=== PATIENT | female | born 1985 | race Caucasian/White ===

== ENCOUNTER → 2019-10-10 | Outpatient (CLI) | payer MEDICAID | LOC: LL.US 14:56 | PROVIDERS: ATTEND Obstetrics & Gynecology | DX: Z34.91 Encounter for supervision of normal pregnancy, unspecified, first trimester (principal); Z3A.12 12 weeks gestation of pregnancy | CPT/HCPCS: 76801 ==

== ENCOUNTER 2020-12-03 07:01 | Day surgery (SDC) | payer MEDICAID ==
[~2020-12-03 07:01] MED LIST: Lactated Ringers 1,000 ML IV SCH; Sodium Chloride 0.9% 10 ML Syringe FLUSH PRN
[2020-12-03] MEDS ORDERED: Midazolam 1 MG/ML 2 ML SDV ONE (07:29)
[2020-12-03] MEDS ORDERED: Propofol 200 MG/20 ML SDV ONE (07:30)
[2020-12-03] MEDS ORDERED: fentaNYL 250 MCG/5 ML SDV ONE (07:30)
--- NOTE | 2020-12-03 08:23 | PCM.PN ---
- General Info Date of Service: 12/03/20 - Review of Systems Systems Review Comment:: 35-year-old female with multiple previous episodes of upper abdominal pain. She underwent ultrasound evaluation which confirmed cholelithiasis. She comes for cholecystectomy. Recent laboratory studies show normal liver function tests. Patient is medically stable to proceed today. There is no significant change in her health status or symptoms since her recent history and physical. I reviewed the proposed operative procedure with the patient. Risks such as but not limited to bleeding infection organ injury and possible need for laparotomy are reviewed. She agrees to proceed. - Patient Data Vitals - Most Recent: Last Vital Signs Temp 98.0 F 12/03/20 07:40 Pulse 69 12/03/20 07:40 Resp 18 12/03/20 07:40 BP 145/94 H 12/03/20 07:40 Pulse Ox 97 12/03/20 07:40 Weight - Most Recent: 81.647 kg Med Orders - Current: Current Medications Lactated Ringer's (Ringers, Lactated) 1,000 mls @ 125 mls/hr IV ASDIRECTED BRAYAN Last Admin: 12/03/20 07:45 Dose: 125 mls/hr Documented by: Sodium Chloride (Saline Flush) 10 ml FLUSH ASDIRECTED PRN PRN Reason: Keep Vein Open Discontinued Medications Fentanyl (Sublimaze) Confirm Administered Dose 250 mcg .ROUTE .STK-MED ONE Stop: 12/03/20 07:31 Midazolam HCl (Versed 1 Mg/Ml) Confirm Administered Dose 2 mg .ROUTE .STK-MED ONE Stop: 12/03/20 07:30 Propofol (Diprivan 20 Ml) Confirm Administered Dose 200 mg .ROUTE .STK-MED ONE Stop: 12/03/20 07:31 Sepsis Event Note - Focused Exam Vital Signs: Vital Signs Temp Pulse Resp BP Pulse Ox 12/03/20 07:40 98.0 F 69 18 145/94 H 97 - Problem List Review Problem List Initiated/Reviewed/Updated: Yes - Assessment Assessment:: Cholelithiasis with biliary colic - Plan Plan:: Cholecystectomy
[2020-12-03] MEDS ORDERED: Bupivacaine 0.5%/EPINEPHrine 1:200,000 30 ML SDV ONE (08:30)
[2020-12-03] MEDS ORDERED: Neostigmine Methylsulfate 10 MG/10 ML MDV IV ONE (08:30)
[2020-12-03] MEDS ORDERED: Ondansetron 4 MG/2 ML SDV IVPUSH ONE (08:30)
[2020-12-03] MEDS ORDERED: Dexamethasone 10 MG/ML SDV IVPUSH ONE (08:30)
[2020-12-03] MEDS ORDERED: Succinylcholine 200 MG/10 ML MDV IV ONE (08:30)
[2020-12-03] MEDS ORDERED: Rocuronium 100 MG/10 ML MDV IV ONE (08:30)
[2020-12-03] MEDS ORDERED: Bupivacaine 0.25% 10 ML SDV INJECT ONE (08:30)
[2020-12-03] MEDS ORDERED: ceFAZolin 1 GM Vial IV ONE (08:30)
[2020-12-03] MEDS ORDERED: Ketorolac 30 MG/ML SDV IVPUSH ONE (08:30)
[2020-12-03] MEDS ORDERED: Glycopyrrolate 0.2 MG/ML SDV IVPUSH ONE (08:30)
[2020-12-03] MEDS ORDERED: Bacitracin Oint 1 GM U/D Packet TOP ONE (10:00)
--- NOTE | 2020-12-03 10:15 | PCM.OPNOTE ---
- General Post-Op/Procedure Note Date of Surgery/Procedure: 12/03/20 Operative Procedure(s): Cholecystectomy Findings: Chronically inflamed gallbladder with multiple stone Pre Op Diagnosis: Chronci cholecystitis with cholelithiasis Post-Op Diagnosis: Same Anesthesia Technique: General ET Tube Primary Surgeon: Markos Graves Pathology: Gallbladder EBL in mLs: 10 Complications: None Condition: Good
--- NOTE | 2020-12-03 11:19 | OR ---
Date of Procedure: 12/03/2020 PREOPERATIVE DIAGNOSIS: Chronic cholecystitis with cholelithiasis. POSTOPERATIVE DIAGNOSIS: Chronic cholecystitis with cholelithiasis. PROCEDURE PERFORMED: Laparoscopic cholecystectomy. INDICATIONS FOR SURGERY: This 35-year-old female has been having recent episodes of postprandial upper abdominal pain. Workup has identified cholelithiasis and she comes for cholecystectomy. FINDINGS: The patient's gallbladder does not appear acutely inflamed, although there are some adhesions to its undersurface consistent with chronic inflammation. The gallbladder does contain multiple stones of varying size. The adjacent liver and other intraabdominal organs appear unremarkable as viewed laparoscopically. DESCRIPTION OF PROCEDURE: The patient was taken to the operating room. She was given general endotracheal anesthesia. Her abdomen was sterilely prepped and draped. A supraumbilical stab wound incision was made. Through this, a Veress needle was inserted and pneumoperitoneum via this needle to a pressure of 15 mmHg was achieved with carbon dioxide. The Veress needle was then replaced with a 12 mm trocar into which the 10 mm 0- degree laparoscopic camera is inserted. Under direct visualization, 5 mm trocars were placed in the subxiphoid midline and in two areas of the right abdomen. All trocar sites were infiltrated with Marcaine prior to incision. Intraabdominal inspection was carried out and attention was turned to the gallbladder. It was secured with grasping forceps placed through the lateral trocars and retracted superiorly and anteriorly. The fatty tissue adhesions to the undersurface of the gallbladder carefully taken down and additional dissection exposed the cystic duct and then the cystic artery. Once the cystic artery had been clearly identified, it was doubly clipped and divided near the gallbladder. The triangle of Calot was then cleared and the cystic duct clearly identified. It was milked and then doubly clipped and divided near the gallbladder with great care being used to avoid any injury or compromise to the common bile duct. The gallbladder was then dissected free from the undersurface of the liver using the hook cautery device. Once the gallbladder is completely freed, it was extracted through the umbilical trocar site. Because of the large amount of stones, these had to be evacuated extraabdominally before the gallbladder could be removed, and because of the presence of one very large stone, the fascial opening at this level had to be slightly enlarged until the stone could be extracted. There was no sign of any bile or stone spillage intra-abdominally. Reinspection of the gallbladder bed was carried out showing good hemostasis and no sign of complication. The pneumoperitoneum was evacuated and the trocars were removed under direct visualization. The fascia of the largest trocar site was closed with a running 0 Vicryl suture. Wounds were irrigated with Betadine and saline solution, and skin incisions approximated with interrupted 4-0 Vicryl in a subcuticular stitch. Benzoin and Steri-Strips were applied followed by antibiotic ointment and sterile dressings. The patient was awakened, extubated, and taken from the operating room in satisfactory condition. ESTIMATED BLOOD LOSS: 10 mL. COMPLICATIONS: None. PROGNOSIS: Good. RADHA Graves MD /[id number]
== END 2020-12-03 13:04 | disposition home or self-care (01) ==
LOC: LL.SDS 07:01
PROVIDERS: ATTEND Surgery
DX: K80.10 Calculus of gallbladder with chronic cholecystitis without obstruction (principal); I10 Essential (primary) hypertension; Z01.812 Encounter for preprocedural laboratory examination; Z20.822 Contact with and (suspected) exposure to COVID-19; Z79.899 Other long term (current) drug therapy; Z87.891 Personal history of nicotine dependence
CPT/HCPCS: 00790; J0330; J0690; J1100; J1885; J2250; J2405; J2704; J2710; J3010; J3490; J7120; U0002

== ENCOUNTER 2023-06-22 09:24 | Day surgery (SDC) | payer BC, MEDICAID, OTHER ==
[~2023-06-22 09:24] MED LIST changes: +Midazolam 1 MG/ML 2 ML SDV ONE; +Propofol 200 MG/20 ML SDV ONE; +fentaNYL 100 MCG/2 ML SDV ONE
[2023-06-22] MEDS ORDERED: ceFAZolin 1 GM Vial ONE (11:02)
[2023-06-22] MEDS ORDERED: Dexamethasone 10 MG/ML SDV ONE (11:02)
[2023-06-22] MEDS ORDERED: Ondansetron 4 MG/2 ML SDV ONE (11:02)
[2023-06-22] MEDS ORDERED: Lidocaine 1% 5 ML VIAL INFILT ONE (11:18)
[2023-06-22] MEDS ORDERED: Bupivacaine 0.5%/EPINEPHrine 1:200,000 30 ML SDV INFILT ONE (11:18)
[2023-06-22 13:02] VITALS: BP 126/86; PULSE 58
== END 2023-06-22 13:40 | disposition home or self-care (01) ==
LOC: LL.SDS 09:24
PROVIDERS: ATTEND Surgery
DX: K42.0 Umbilical hernia with obstruction, without gangrene (principal); I10 Essential (primary) hypertension; G43.909 Migraine, unspecified, not intractable, without status migrainosus; F33.42 Major depressive disorder, recurrent, in full remission; L98.9 Disorder of the skin and subcutaneous tissue, unspecified; J30.2 Other seasonal allergic rhinitis; E66.01 Morbid (severe) obesity due to excess calories; Z79.899 Other long term (current) drug therapy; Z90.49 Acquired absence of other specified parts of digestive tract; Z98.890 Other specified postprocedural states; Z68.35 Body mass index [BMI] 35.0-35.9, adult
CPT/HCPCS: 00750; 36415; 84703; J0690; J1100; J2250; J2405; J2704; J3010; J3490; J7120